=== PATIENT | female | born 1980 | race Caucasian/White ===

== ENCOUNTER 2020-11-12 15:06 | Emergency (ER) | payer OTHER ==
--- NOTE | 2020-11-12 17:38 | ER ---
Nurse's Notes [facility] Name: Shazia Arroyo Age: 40 yrs Sex: Female : 1980 Arrival Date: 11/12/2020 Time: 15:11 Bed 8 Private MD: Diagnosis: Contusion of right index finger without damage to nail Presentation: 11/12 15:25 Chief complaint: Patient states: smashed right index finger in a cage at work, noticed em the finger getting cold today and went to urgent care but was told to come to the ED, denies any other injuries. Coronavirus screen: Client denies travel out of the [place] in the last 14 days. Ebola Screen: Patient negative for fever greater than or equal to 101.5 degrees Fahrenheit, and additional compatible Ebola Virus Disease symptoms Patient denies exposure to infectious person. Patient denies travel to an Ebola-affected area in the 21 days before illness onset. No symptoms or risks identified at this time. Initial Sepsis Screen: Does the patient meet any 2 criteria? No. Patient's initial sepsis screen is negative. Does the patient have a suspected source of infection? No. Patient's initial sepsis screen is negative. Risk Assessment: Do you want to hurt yourself or someone else? Patient reports no desire to harm self or others. Onset of symptoms was November 12, 2020. 15:25 Method Of Arrival: Ambulatory em 15:25 Acuity: NARDA 4 em Triage Assessment: 17:44 Injury Description:. 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 - Social history:: Smoking status: Patient denies any tobacco usage or history of. Screenin:06 Abuse screen: Denies threats or abuse. Denies injuries from another. Nutritional sv screening: No deficits noted. Tuberculosis screening: No symptoms or risk factors identified. Fall Risk None identified. Assessment: 16:03 General: Appears in no apparent distress. comfortable, well developed, well nourished, sv Behavior is calm, cooperative, appropriate for age. Pain: Denies pain. Neuro: Level of Consciousness is awake, alert, obeys commands, Oriented to person, place, time, situation, Moves all extremities. Full function Gait is steady, Speech is normal. Respiratory: Airway is patent Respiratory effort is even, unlabored, Respiratory pattern is regular, symmetrical. Derm: Skin is intact, Skin is pink, warm \T\ dry. Pt's right index finger is colder than the rest of her fingers at this time. Pt reports that it happens intermittently. When she injured her finger the cage slammed shut on her knuckle. Musculoskeletal: Range of motion: limited in DIP of right index finger and PIP of right index finger. Vital Signs: 15:25 BP 140 / 91; Pulse 71; Resp 18; Temp 98.4; Pulse Ox 97% on R/A; Weight 85.28 kg; Height em 5 ft. 4 in. (162.56 cm); Pain 0/10; 15:25 Body Mass Index 32.27 (85.28 kg, 162.56 cm) em ED Course: 15:11 Patient arrived in ED. mr 15:28 Triage completed. em 15:28 Arm band placed on. em 15:33 Scott Sawant PA is PHCP. jr8 15:33 Luis Enrique Jiménez MD is Attending Physician. jr8 15:36 Kayla Cha RN is Primary Nurse. sv 16:06 Patient has correct armband on for positive identification. Bed in low position. Call sv light in reach. Door closed. Head of bed elevated. 16:08 Awaiting for x-ray. sv 17:24 Awaiting for x-ray. sv 17:43 No provider procedures requiring assistance completed. Patient did not have IV access ld1 during this emergency room visit. 17:53 XRAY Hand RIGHT 3 View In Process Unspecified. EDMS Administered Medications: No medications were administered Outcome: 17:38 Discharge ordered by . jr8 17:44 Discharged to home ambulatory. ld1 17:44 Condition: stable 17:44 Discharge instructions given to patient, Instructed on discharge instructions, Demonstrated understanding of instructions, follow-up care. 17:45 Patient left the ED. ld1 Signatures: Dispatcher [employer] EDMS Kayla Cha RN RN Tai Jenni guzmán Raymond Carl RN RN Scott Sawant PA PA jr Dibbern, Alyssa, RN RN ld1
--- NOTE | 2020-11-12 17:39 | EDPHYS ---
Physician Documentation [facility] Name: Shazia Arroyo Age: 40 yrs Sex: Female : 1980 Arrival Date: 11/12/2020 Time: 15:11 Bed 8 Private MD: ED Physician Luis Enrique Jiménez HPI: 11/12 16:25 This 40 yrs old Female presents to ER via Ambulatory with complaints of jr8 Finger Injury. 16:25 Associated injuries: The patient sustained PIP of right index finger, decreased range jr8 of motion, ecchymosis, painful injury. Onset: The symptoms/episode began/occurred last week. The patient has not experienced similar symptoms in the past. The patient has not recently seen a physician. Stated that she smashed her finger in a door. Overall feeling better but noticed some temperature change and was concerned that something was going on . 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 - Social history:: Smoking status: Patient denies any tobacco usage or history of. ROS: 16:25 Eyes: Negative for injury, pain, redness, and discharge, ENT: Negative for injury, jr8 pain, and discharge, Neck: Negative for injury, pain, and swelling, Cardiovascular: Negative for chest pain, palpitations, and edema, Respiratory: Negative for shortness of breath, cough, wheezing, and pleuritic chest pain, Abdomen/GI: Negative for abdominal pain, nausea, vomiting, diarrhea, and constipation, Back: Negative for injury and pain, Skin: Negative for injury, rash, and discoloration, Neuro: Negative for headache, weakness, numbness, tingling, and seizure. 16:25 MS/extremity: Positive for ecchymosis, pain, swelling, tenderness, of the PIP of right index finger. Exam: 16:25 Constitutional: This is a well developed, well nourished patient who is awake, alert, jr8 and in no acute distress. Cardiovascular: Regular rate and rhythm with a normal S1 and S2. No gallops, murmurs, or rubs. Normal PMI, no JVD. No pulse deficits. Respiratory: Lungs have equal breath sounds bilaterally, clear to auscultation and percussion. No rales, rhonchi or wheezes noted. No increased work of breathing, no retractions or nasal flaring. Skin: Warm, dry with normal turgor. Normal color with no rashes, no lesions, and no evidence of cellulitis. Neuro: Awake and alert, GCS 15, oriented to person, place, time, and situation. Motor strength 5/5 in all extremities. Sensory grossly intact. 16:25 Musculoskeletal/extremity: Extremities: grossly normal except: noted in the PIP of right index finger: mild swelling and ecchymosis noted. Decreased ROM Present with passive movement. Full ROM with active movement noted , Circulation is intact in all extremities. Perfusion: the extremity is normally perfused throughout, pink, with brisk capillary refill, Sensation intact. Vital Signs: 15:25 BP 140 / 91; Pulse 71; Resp 18; Temp 98.4; Pulse Ox 97% on R/A; Weight 85.28 kg; Height em 5 ft. 4 in. (162.56 cm); Pain 0/10; 15:25 Body Mass Index 32.27 (85.28 kg, 162.56 cm) em MDM: 15:33 Patient medically screened. jr8 17:37 Data reviewed: vital signs, nurses notes, radiologic studies, plain films, and as a jr8 result, I will discharge patient. Data interpreted: Pulse oximetry: on room air is 97 %. Interpretation: normal. Counseling: I had a detailed discussion with the patient and/or guardian regarding: the historical points, exam findings, and any diagnostic results supporting the discharge/admit diagnosis, radiology results, the need for outpatient follow up, a family practitioner, to return to the emergency department if symptoms worsen or persist or if there are any questions or concerns that arise at home. 11/12 15:33 Order name: XRAY Hand RIGHT 3 View jr8 Administered Medications: No medications were administered Disposition: 11/13 07:52 Co-signature as Attending Physician, Luis Enrique Jiménez MD I agree with the assessment and jassi plan of care. Disposition: 11/12/20 17:38 Discharged to Home as Medical Screen. Impression: Contusion of right index finger without damage to nail. - Condition is Stable. - Discharge Instructions: Hand Contusion. - Medication Reconciliation Form, Thank You Letter, Antibiotic Education, Prescription Opioid Use form. - Follow up: Private Physician; When: As needed; Reason: Recheck today's complaints, Continuance of care, Re-evaluation by your physician. - Problem is new. - Symptoms have improved. Signatures: Dispatcher [employer] Luis Enrique Ackerman MD MD cha Munoz, Edgar, RN RN Scott Looney, EAN PA jr8 Alyssa Couch RN RN ld1 Corrections: (The following items were deleted from the chart) 11/12 16:29 16:25 MS/extremity: Positive for ecchymosis, pain, swelling, tenderness, of the DIP of jr8 right index finger, jr8 17:45 17:38 11/12/2020 17:38 Discharged to Home. Impression: Contusion of right index finger ld1 without damage to nail. Condition is Stable. Forms are Medication Reconciliation Form, Thank You Letter, Antibiotic Education, Prescription Opioid Use. Follow up: Private Physician; When: As needed; Reason: Recheck today's complaints, Continuance of care, Re-evaluation by your physician. Problem is new. Symptoms have improved. jr8
[2020-11-12 17:50] VITALS: BP 140/91; TEMP 98.4; O2SAT 97
--- NOTE | 2020-11-12 18:19 | RAD REPORT ---
EXAM DESCRIPTION: RAD - Hand Right 3 View - 11/12/2020 5:53 pm CLINICAL HISTORY: Right hand pain status post injury FINDINGS: No fracture or dislocation is seen.
== END 2020-11-12 17:45 | disposition home or self-care (01) ==
LOC: ER 15:06
DX: S60.021A Contusion of right index finger without damage to nail, initial encounter (principal); W23.1XXA Caught, crushed, jammed, or pinched between stationary objects, initial encounter; E78.5 Hyperlipidemia, unspecified; Z88.1 Allergy status to other antibiotic agents
CPT/HCPCS: 99283